=== PATIENT | female | born 1960 | race Caucasian/White ===

== ENCOUNTER 2022-10-13 13:05 | Outpatient (OUT) | payer BC, SELFPAY ==
[2022-10-14 08:59] LABS: Basophils Absolute Auto 0.1 10^3/uL (0.0-0.1); Basophils Percent Auto 0.7 % (0.2-2.0); Eosinophils Absolute Auto 0.2 10^3/uL (0.0-0.7); Eosinophils Percent Auto 1.9 % (0.9-7.0); Hematocrit 38.4 % (36.0-48.0); Hemoglobin 12.6 g/dL (12.0-16.0); Immature Granulocytes Abs Auto 0.02 10^3/uL (0.00-0.03); Immature Granulocytes Pct Auto 0.2 % (0.0-0.5); Lymphocytes Absolute Auto 2.3 10^3/uL (1.2-3.8); Lymphocytes Percent Auto 28.1 % (20.5-60.0); Mean Corpuscular HGB Conc 32.8 g/dL (29.9-35.2); Mean Corpuscular Hemoglobin 28.4 pg (26.7-34.0); Mean Corpuscular Volume 86.7 fL (81.0-99.0); Mean Platelet Volume 8.9 fL (9.5-13.5); Monocytes Absolute Auto 0.7 10^3/uL (0.3-0.8); Monocytes Percent Auto 8.6 % (1.7-12.0); Neutrophils Percent Auto 60.5 % (43.0-75.0); Platelet Count 300 10^3/uL (150-450); Red Blood Count 4.43 10^6/uL (4.20-5.40); Red Cell Distribution Width 13.2 % (11.0-15.0); White Blood Count 8.2 10^3/uL (4.0-11.0)
[2022-10-14 09:11] LABS: Alanine Aminotransferase 30 U/L (14-59); Albumin Level 3.9 g/dL (3.4-5.0); Alkaline Phosphatase 90 U/L (46-116); Anion Gap 10.7; Aspartate Amino Transferase 18 U/L (15-37); BUN Creatinine Ratio 15.3; Bilirubin Total 0.7 mg/dL (0.2-1.0); Calcium 9.6 mg/dL (8.5-10.1); Carbon Dioxide 29.5 mmol/L (21.0-32.0); Chloride 100 mmol/L (98-107); Estimated GFR (African America >60 (>=60); Estimated GFR (Non-African Ame >60 (>=60); Glucose 104 mg/dL (74-106); Potassium 4.2 mmol/L (3.5-5.1); Sodium 136 mmol/L (136-145); Total Protein 7.9 g/dL (6.4-8.2)
[2022-10-14 09:20] LABS: Chol HDL Ratio 2.8; Cholesterol 193 mg/dL (<=200); HDL Cholesterol 70 mg/dL (40-60); Thyroid Stimulating Hormone 1.444 uIU/mL (0.358-3.740); Triglycerides 173 mg/dL (<=150); VLDL CHOLESTEROL 34.6 mg/dL
== END 2022-10-13 13:06 | disposition home or self-care (01) ==
LOC: MAMMO 13:21
PROVIDERS: PCP Nurse Practitioner; Visit Provider Nurse Practitioner
DX: Z00.00 Encounter for general adult medical examination without abnormal findings (principal); I10 Essential (primary) hypertension; E78.5 Hyperlipidemia, unspecified; D64.9 Anemia, unspecified
CPT/HCPCS: 36415; 80053; 80061; 84443; 85025

== ENCOUNTER 2022-10-14 07:55 | Outpatient (OUT) | payer BC, SELFPAY ==
--- NOTE | 2022-10-14 07:59 | MM_ITS ---
Patient: EMERITA TSE Exam Date: 10/14/2022 : 1960 Gender:F Ordering : MRS. PARISA CopelandEde MYRA . Admission #: [id number] Family : Order #: [id number] CLICK HERE TO VIEW EXAM RADIOLOGY REPORT PROCEDURE: MM TOMOSYNTHESIS SCREENING BI COMPARISON: MG MAMM SCREEN ZULMA W CAD, 06/29/2020. MG MAMM SCREEN 3D ZULMA CAD, 07/05/2021. INDICATIONS: Screening Calculator Name NCI Breast Cancer Risk Assessment Tool 5 Year Breast Cancer Risk 2.00% Lifetime Breast Cancer Risk 10.00% Personal Breast Cancer No Personal Ovarian Cancer No Treatments None Family Cancers None LOCATION: [facility] BREAST COMPOSITION: Extremely dense, which lowers the sensitivity of mammography. FINDINGS: DIAGNOSTIC CATEGORY 2--BENIGN FINDING. NO CHANGE FROM COMPARISON. Scattered benign-appearing nodules are present. Scattered benign-appearing calcifications are present. Scattered benign-appearing lymph nodes are present. RIGHT BREAST: No significant suspicious finding. LEFT BREAST: No significant suspicious finding. RECOMMENDATIONS: ROUTINE MAMMOGRAM AND CLINICAL EVALUATION IN 12 MONTHS. PLEASE NOTE: A NORMAL MAMMOGRAM DOES NOT EXCLUDE THE POSSIBILITY OF BREAST CANCER. A CLINICALLY SUSPICIOUS PALPABLE LUMP SHOULD BE BIOPSIED. Dictated by: Mele Zhang MD on 10/14/2022 at 09:25 Approved by: Mele Zhang MD on 10/14/2022 at 09:28
== END 2022-10-14 07:56 | disposition home or self-care (01) ==
LOC: MAMMO 07:55
PROVIDERS: PCP Nurse Practitioner; Visit Provider Nurse Practitioner
DX: Z12.31 Encounter for screening mammogram for malignant neoplasm of breast (principal); I10 Essential (primary) hypertension; E78.5 Hyperlipidemia, unspecified; Z00.00 Encounter for general adult medical examination without abnormal findings
CPT/HCPCS: 77063; 77067

== ENCOUNTER 2023-03-02 15:00 | Outpatient (OUT) | payer BC, SELFPAY ==
[2023-03-02] MEDS: COVID VAC 23-24(12UP)MODERNA/PF 50 MCG/0.5 ML VIAL IM (16:00)
== END 2023-03-02 15:01 | disposition home or self-care (01) ==
LOC: VACCLI 03-21 16:06
PROVIDERS: PCP Nurse Practitioner; Visit Provider Nurse Practitioner
DX: Z23 Encounter for immunization (principal)
CPT/HCPCS: 90480; 91322

== ENCOUNTER 2024-02-15 09:41 | Outpatient (OUT) | payer OTHER, SELFPAY ==
--- NOTE | 2024-02-15 09:49 | MM_ITS ---
Patient Name: EMERITA TSE MR#: [id number] : 1960 Exam Date: 02/15/2024 Ordering Doctor: PARISA RENTERIA . RADIOLOGY REPORT PROCEDURE: MM TOMOSYNTHESIS SCREENING BI COMPARISON: MG MAMM SCREEN 3D ZULMA CAD, 07/05/2021. MM TOMOSYNTHESIS SCREENING BI, 10/14/2022. INDICATIONS: Screening Calculator Name NCI Breast Cancer Risk Assessment Tool 5 Year Breast Cancer Risk 2.00% Lifetime Breast Cancer Risk 9.70% Personal Breast Cancer No Personal Ovarian Cancer No Treatments None Family Cancers None LOCATION: [facility] BREAST COMPOSITION: The breasts are extremely dense, which lowers the sensitivity of mammography. FINDINGS: DIAGNOSTIC CATEGORY 2--BENIGN FINDING. NO CHANGE FROM COMPARISON. Scattered benign-appearing calcifications are present. Scattered benign-appearing lymph nodes are present. RIGHT BREAST: No significant suspicious finding. LEFT BREAST: No significant suspicious finding. RECOMMENDATIONS: ROUTINE MAMMOGRAM AND CLINICAL EVALUATION IN 12 MONTHS. PLEASE NOTE: A NORMAL MAMMOGRAM DOES NOT EXCLUDE THE POSSIBILITY OF BREAST CANCER. A CLINICALLY SUSPICIOUS PALPABLE LUMP SHOULD BE BIOPSIED. Dictated by: Mele Zhang MD on 02/15/2024 at 10:39 Approved by: Mele Zhang MD on 02/15/2024 at 10:44
--- OUTSIDE RECORDS SUMMARY | 2024-02-15 09:57 | XMS_ITS | CCD ---
Author Organization [facility] Care Team Providers Care Satellite Dish Technician Name Role Phone ERICKA, DR GALO Primary Care Unavailable HOY, DR VILLAGRAN Admitting Unavailable HOY, DR VILLAGRAN Attending Unavailable HOY, DR VILLAGRAN Consulting Unavailable J LUIS, VALENTINA Admitting Unavailable J LUIS, VALENTINA Attending Unavailable J LUIS, VALENTINA Consulting Unavailable LOUISE, DR CIRILO Dueñas Primary Care Unavailable GIL, DR CIRILO Dueñas Attending Unavailable GIL, DR CIRILO Dueñas Consulting Unavailable KARMONIQUE, DR GALO Primary Care Unavailable LOUISE, DR CIRILO Dueñas Admitting Unavailable [place], DR CONRADO Vasquez Consulting Unavailable LOUISE, DR CIRILO Dueñas Attending Unavailable GIL, DR CIRILO Dueñas Consulting Unavailable KARASIYong, DR GALO Primary Care Unavailable GIL, DR CIRILO Dueñas Admitting Unavailable J LUIS, VALENTINA Admitting Unavailable J LUIS, VALENTINA Attending Unavailable J LUIS, VALENTINA Consulting Unavailable GIL, DR CIRILO Dueñas Primary Care Unavailable Marisa Delacruz Attending Unavailable Problems Active Problems Problem Classification Problem Date Documented Da te Episodic/Chronic Unclassified (3 sources) CONTACT W/AND (SUSP) EXPOS COVID-19; Translations: [CONTACT W/AND (SUSP) EXPOS COVID-19] Onset: 04-29-2021 Past or Other Problems Problem Classification Problem Date Documented Da te Episodic/Chronic Other screening for suspected conditions (not mental disorders or infectious disease) (4 sources) Encounter for screening mammogram for malignant neoplasm of breast; Translations: [ENC SCR MAMMO MALIG NEOPLASM BREAST] Onset: 07-05-2021 Episodic Unclassified (1 source) CONTACT W/AND (SUSP) EXPOS COVID-19; Translations: [CONTACT W/AND (SUSP) EXPOS COVID-19] Onset: 04-23-2021 Results Test Name Value Interpretation Reference Range Facility Ambulatory Visit Summaryon 1 Ambulatory Visit Summary Ambulatory Visit Summary EMERITA TSE :1960 Visit Date:02/06/2024 Ambulatory Visit Instructions Your Diagnosis Wellness examination Breast cancer screening by mammogram Former smoker BMI 30.0-30.9,adult Exogenous obesity Your Care Team Attending Physician - Marisa Silverio Primary Care Physician - Marisa Silverio This Is Your Medications List atorvastatin (atorvastatin 10 mg Tab) fluoxetine (FLUoxetine 20 mg Cap) melatonin (melatonin 10 mg oral tablet) propranolol (propranolol 20 mg Tab) Procedures Performed Laparoscopic hysterectomy (10/22/2016), Tonsillectomy. Discharge Vitals Temperature (Temporal Artery) 36.5 ?C Heart Rate (Peripheral) 88 Respiratory Rate 18 Blood Pressure 128/84 Height 163.0 cm Height 64 in Weight 81.85 kg Weight 180.07 lb BMI 30.81 Medications What How Much When Instructions Unchanged atorvastatin (atorvastatin 10 mg Tab) See instructions TAKE 1 TABLET BY MOUTH DAILY Unchanged fluoxetine (FLUoxetine 20 mg Cap) 1 Capsules By Mouth Every day Unchanged melatonin (melatonin 10 mg oral tablet) 1 Tablets By Mouth Once a day (at bedtime) Unchanged propranolol (propranolol 20 mg Tab) See instructions TAKE 1 TABLET BY MOUTH DAILY Medications and Immunizations Administered Given influenza, unspecified formulation, influenza, unspecified formulation, SARS-CoV-2 (COVID-19) mRNA-1273 vaccine, SARS-CoV-2 (COVID-19) mRNA-1273 vaccine, Allergies No Known Allergies Problems Ongoing - Any problem that you are currently receiving treatment for. Breast cancer screening by mammogram Hyperlipemia Hypertension Left bundle branch block Wellness examination Patient Survey You may receive a survey via text or e-mail asking about your office visit. Please share your experience with us by completing your survey. We appreciate your feedback and thank you for choosing us for your care. Normal Cantu [facility] Family Medicine Office/Clini c Noteon 02-06-2024 Family Medicine Office/Clinic Note Family Medicine Office/Clinic Note HPI Staff Pt presents today for annual wellness exam Health Maintenance: Colonoscopy: 5 years ago. found polops ([facility]) Dexa: before COVID she thinks Mammo: 10/14/22 wants at [facility] Pap: hysterectomy in 2017 had her last pap in 2019 Last Labs: 10/14/22 wants at [facility] Shingles vaccine- she wants info on this. Had one 8-9 years ago she wants to know if she needs any one History of Present Illness pt presents today for wellness visit. needs labs and screenings Review of Systems PHQ Score Initial Depression Screen Score: 0 SCORE Physical Exam Vitals & Measurements T: 36.5 ?C(Temporal Artery) HR: 88(Peripheral) RR: 18 BP: 128/84 SpO2: 97% HT: 64 in HT: 163.0 cm WT: 81.85 kg WT: 180.07 lb BMI: 30.81 General: alert, no acute distress ENMT: oral mucosa moist, no pharyngeal erythema or exudate Cardiovascular: regular rate and rhythm, normal peripheral perfusion Respiratory: Lungs CTA, respirations non labored Extremities: no deformity, no trauma Neurological: oriented x 4, LOC appropriate for age, CN II-XII intact, motor strength equal & normal bilaterally, speech normal Assessment/Plan 1. Wellness examination (Z00.00: Encounter for general adult medical examination without abnormal findings) pt presents today for wellness visit. is due for labs, mammogram, and colonoscopy. Will send all labs to [facility] per pt request. physical exam WNL. all questions answered. RTC as needed Ordered: Est Preventative 40 to 64 years [address] 2. Breast cancer screening by mammogram (Z12.31: Encounter for screening mammogram for malignant neoplasm of breast) order for mammogram given for [facility] Ordered: Est Preventative 40 to 64 years [address] 3. Colon cancer screening (Z12.11: Encounter for screening for malignant neoplasm of colon) pt had colonoscopy 5 years ago had polyps 10 years ago with first scope Ordered: Est Preventative 40 to 64 years [address] [facility] Internal Ambulatory Referral 4. Former smoker (Z87.891: Personal history of nicotine dependence) continue not smoking Ordered: Est Preventative 40 to 64 years [address] [facility] Internal Ambulatory Referral 5. BMI 30.0-30.9,adult (Z68.30: Body mass index [BMI] 30.0-30.9, adult) BMI education given Ordered: Est Preventative 40 to 64 years [address] [facility] Internal Ambulatory Referral 6. Exogenous obesity (E66.09: Other obesity due to excess calories) see above Ordered: Est Preventative 40 to 64 years [address] Follow-up No qualifying data available Problem List/Past Medical History Ongoing Breast cancer screening by mammogram Colon cancer screening Hyperlipemia Hypertension Left bundle branch block Wellness examination Historical No qualifying data Procedure/Surgical History Laparoscopic hysterectomy (10/22/2016), Tonsillectomy. Medications atorvastatin 10 mg Tab, See Instructions, 4 refills FLUoxetine 20 mg Cap, 20 mg= 1 cap(s), Oral, Daily, 4 refills melatonin 10 mg oral tablet, 10 mg= 1 tab(s), Oral, Once a day (at bedtime) propranolol 20 mg Tab, See Instructions, 4 refills Allergies No Known Allergies Social History Alcohol Current. Beer, Wine. 3-5 times per week., 02/05/2024 Substance Abuse Never., 02/05/2024 Tobacco Former smoker, quit more than 30 days ago, quit 31 years ago Tobacco Use:., 02/06/2024 Family History Patient was adopted Immunizations Vaccine Date Status SARS-CoV-2 (COVID-19) mRNA-1273 vaccine 2022 Given SARS-CoV-2 (COVID-19) mRNA-1273 vaccine 2022 Given SARS-CoV-2 (COVID-19) mRNA-1273 vaccine 2022 Recorded SARS-CoV-2 (COVID-19) mRNA-1273 vaccine 02/05/2021 Recorded SARS-CoV-2 (COVID-19) mRNA-1273 vaccine 05/20/2020 Recorded SARS-CoV-2 (COVID-19) mRNA-1273 vaccine 04/21/2020 Recorded influenza, unspecified formulation 01/16/2020 Given influenza, unspecified formulation 01/16/2020 Given influenza virus vaccine, inactivated 01/16/2020 Recorded influenza virus vaccine, inactivated 01/27/2019 Recorded influenza virus vaccine, inactivated 01/28/2018 Recorded influenza virus vaccine, inactivated 01/28/2017 Recorded influenza virus vaccine, inactivated 02/23/2016 Recorded zoster vaccine live 03/31/2015 Recorded influenza virus vaccine, inactivated 02/16/2015 Recorded influenza virus vaccine, inactivated 03/25/2014 Recorded influenza virus vaccine, inactivated 05/02/2013 Recorded Normal Cantu [facility] Comment on above: Result Comment: Elec tronically Signed By: Marisa Silverio\.br\Date and Time Signed: 02/06/24 12:20 EDT CBC AUTO DIFFon 12-08-2021 BASO # 0.0 103/ul Normal 0.0-0.1 [facility] Comment on above: Performed By: #### C BC #### [facility] [address] [address] [address] Nisreen Cody Basophils/100 WBC (Bld) 0.5 % Normal 0.2-2.0 [facility] Comment on above: Performed By: #### C BC #### [facility] [address] [address] [address] Nisreen Cody EO # 0.1 103/ul Normal 0.0-0.7 [facility] Comment on above: Performed By: #### C BC #### [facility] [address] [address] [address] Nisreen Cody Eosinophils/100 WBC (Bld) 1.8 % Normal 0.9-7.0 [facility] Comment on above: Performed By: #### C BC #### [facility] [address] [place] [address] Dr. Nisreen Cody Erythrocyte distribution width (RBC) [Ratio] 13.0 % Normal 11.0-15.0 [facility] Comment on above: Performed By: #### C BC #### [facility] [address] [place] [address] Dr. Nisreen Cody Hematocrit (Bld) [Volume fraction] 35.8 % Critically low 36.0-48.0 [facility] Comment on above: Performed By: #### C BC #### [facility] [address] [place] [address] Dr. Nisreen Cody Hemoglobin (Bld) [Mass/Vol] 11.7 g/dL Critically low 12.0-16.0 [facility] Comment on above: Performed By: #### C BC #### [facility] [address] [place] [address] Dr. Nisreen Cody IG # 0.01 10e3/ul Normal 0.00-0.03 [facility] Comment on above: Performed By: #### C BC #### [facility] [address] [address] [address] Nisreen Cody IG % 0.2 % Normal 0.0-0.5 [facility] Comment on above: Performed By: #### C BC #### [facility] [address] [place] [address] Dr. Nisreen Cody LYMPH # 1.9 103/ul Normal 1.2-3.8 [facility] Comment on above: Performed By: #### C BC #### [facility] [address] [place] [address] Dr. Nisreen Cody Lymphocytes/100 WBC (Bld) 30.7 % Normal 20.5-60.0 [facility] Comment on above: Performed By: #### C BC #### [facility] [address] [place] [address] Dr. Nisreen Cody MANUAL DIFF REQ NO Normal [facility] Comment on above: Performed By: #### C BC #### [facility] [address] [place] [address] Dr. Nisreen Cody MCH (RBC) [Entitic mass] 28.7 pg Normal 26.7-34.0 [facility] Comment on above: Performed By: #### C BC #### [facility] [address] [place] [address] Dr. Nisreen Cody MCHC (RBC) [Mass/Vol] 32.7 g/dL Normal 29.9-35.2 [facility] Comment on above: Performed By: #### C BC #### [facility] [address] [place] [address] Dr. Nisreen Cody MCV (RBC) [Entitic vol] 87.7 fL Normal 81.0-99.0 [facility] Comment on above: Performed By: #### C BC #### [facility] [address] [place] [address] Dr. Nisreen Cody MONO # 0.5 103/ul Normal 0.3-0.8 [facility] Comment on above: Performed By: #### C BC #### [facility] [address] [place] [address] Dr. Nisreen Cody Monocytes/100 WBC (Bld) 8.3 % Normal 1.7-12.0 [facility] Comment on above: Performed By: #### C BC #### [facility] [address] [address] [address] Nisreen Cody NEUT # 3.7 103/ul Normal 1.4-6.5 [facility] Comment on above: Performed By: #### C BC #### [facility] [address] [address] [address] Nisreen Cody Neutrophils/100 WBC (Bld) 58.5 % Normal 43.0-75.0 [facility] Comment on above: Performed By: #### C BC #### [facility] [address] [address] [address] Nisreen Cody Platelet mean volume (Bld) [Entitic vol] 8.8 fL Critically low 9.5-13.5 [facility] Comment on above: Performed By: #### C BC #### [facility] [address] [place] [address] Dr. Nisreen Cody PLT 264 103/ul Normal 150-450 [facility] Comment on above: Performed By: #### C BC #### [facility] [address] [address] [address] Nisreen Cody RBC 4.08 106/ul Critically low 4.20-5.40 [facility] Comment on above: Performed By: #### C BC #### [facility] [address] [place] [address] Dr. Nisreen Cody WBC 6.3 103/ul Normal 4.0-11.0 [facility] Comment on above: Performed By: #### C BC #### [facility] [address] [place] [address] Dr. Nisreen Cody GLYCOHEMOGLOBIN A1Con 2021 ADA RECOMMENDATION SEE BELOW Normal [facility] Comment on above: Result Comment: ADA RECOMMENDED LIMIT 4.0 - 6.0 ADA THERAPEUTIC TARGET < 7.0 ACTION SUGGESTED > 7.0 Performed By: #### A 1C #### [facility] [address] [place] [address] Dr. Nisreen Cody Glucose [Mass/Vol] 111 mg/dL Normal [facility] Comment on above: Performed By: #### A 1C #### [facility] [address] [place] [address] Dr. Nisreen Cody HbA1c (Bld) [Mass fraction] 5.5 % Normal 4.5-6.2 [facility] Comment on above: Performed By: #### A 1C #### [facility] [address] [place] [address] Dr. Nisreen Cody LIPID PROFILEon 12-08-2021 CHOL-HDL RATIO NORM SEE BELOW Normal [facility] Comment on above: Result Comment: 3.3 - 4.4 LOW RISK 4.4 - 7.1 AVERAGE RISK 7.1 - 11.0 MODERATE RISK >11.0 HIGH RISK Performed By: #### C MP, LIPID #### [facility] [address] [place] [address] Dr. Nisreen Cody Cholesterol [Mass/Vol] 167 mg/dL Normal <=200 [facility] Comment on above: Performed By: #### C MP, LIPID #### [facility] [address] [place] [address] Dr. Nisreen Cody Cholesterol in HDL [Mass/Vol] 60 mg/dL Normal 40-60 [facility] Comment on above: Performed By: #### C MP, LIPID #### [facility] [address] [place] [address] Dr. Nisreen Cody Cholesterol in LDL [Mass/Vol] 88.6 mg/dL Normal [facility] Comment on above: Performed By: #### C MP, LIPID #### [facility] [address] [place] [address] Dr. Nisreen Cody Cholesterol.total/Cho lesterol in HDL [Mass ratio] 2.8 {ratio} Normal [facility] Comment on above: Performed By: #### C MP, LIPID #### [facility] [address] [place] [address] Dr. Nisreen Cody HDL NORMAL > or = 60 mg/dl - LO W CARDIOVASCULAR RISK <40 mg/dl - HIGH CARDIOVASCULAR RISK Normal [facility] Comment on above: Performed By: #### C MP, LIPID #### [facility] [address] [place] [address] Dr. Nisreen Cody LDL CALC NORMAL SEE BELOW Normal [facility] Comment on above: Result Comment: <100 mg/dl OPTIMAL 100 - 129 mg/dl NEAR OR ABOVE OPTIMAL 130 - 159 mg/dl BORDERLINE HIGH 160 - 189 mg/dl HIGH >190 mg/dl VERY HIGH Performed By: #### C MP, LIPID #### [facility] [address] [address] [address] Nisreen Cody Triglyceride [Mass/Vol] 92 mg/dL Normal <=150 [facility] Comment on above: Performed By: #### C MP, LIPID #### [facility] [address] [address] [address] Nisreen Cody VLDL CALC 18.4 mg/dL Normal [facility] Comment on above: Performed By: #### C MP, LIPID #### [facility] [address] [address] [address] Nisreen Cody PROF 14(COMP METB)on 022 Albumin [Mass/Vol] 3.8 g/dL Normal 3.4-5.0 [facility] Comment on above: Performed By: #### C MP, LIPID #### [facility] [address] [address] [address] Nisreen Cody Albumin/Globulin [Mass ratio] 1.2 {ratio} Normal [facility] Comment on above: Performed By: #### C MP, LIPID #### [facility] [address] [address] [address] Nisreen Cody ALP [Catalytic activity/Vol] 116 U/L Normal 46-116 [facility] Comment on above: Performed By: #### C MP, LIPID #### [facility] [address] [address] [address] Nisreen Cody ALT [Catalytic activity/Vol] 23 U/L Normal 14-59 [facility] Comment on above: Performed By: #### C MP, LIPID #### [facility] [address] [address] [address] Nisreen Cody Anion gap [Moles/Vol] 10.7 mmol/L Normal [facility] Comment on above: Performed By: #### C MP, LIPID #### [facility] [address] [address] [address] Nisreen Cody AST [Catalytic activity/Vol] 15 U/L Normal 15-37 [facility] Comment on above: Performed By: #### C MP, LIPID #### [facility] [address] [address] [address] Nisreen Cody Bilirubin [Mass/Vol] 0.4 mg/dL Normal 0.2-1.0 [facility] Comment on above: Performed By: #### C MP, LIPID #### [facility] [address] [address] [address] Nisreen Cody Calcium [Mass/Vol] 8.6 mg/dL Normal 8.5-10.1 [facility] Comment on above: Performed By: #### C MP, LIPID #### [facility] [address] [address] [address] Nisreen Cody Chloride [Moles/Vol] 103 mmol/L Normal 98-107 [facility] Comment on above: Performed By: #### C MP, LIPID #### [facility] [address] [address] [address] Nisreen Cody CO2 [Moles/Vol] 28.5 mmol/L Normal 21.0-32.0 [facility] Comment on above: Performed By: #### C MP, LIPID #### [facility] [address] [address] [address] Nisreen Cody Creatinine [Mass/Vol] 0.83 mg/dL Normal 0.55-1.02 [facility] Comment on above: Performed By: #### C MP, LIPID #### [facility] [address] [address] [address] Nisreen Cody EGFR-AF CONGOLESE >60 Normal >=60 [facility] Comment on above: Performed By: #### C MP, LIPID #### [facility] [address] [address] [address] Nisreen Cody EGFR-NON AF CONGOLESE >60 Normal >=60 [facility] Comment on above: Performed By: #### C MP, LIPID #### [facility] [address] [address] [address] Nisreen Cody Globulin (S) [Mass/Vol] 3.2 g/dL Normal [facility] Comment on above: Performed By: #### C MP, LIPID #### [facility] [address] [address] [address] Nisreen Cody Glucose [Mass/Vol] 99 mg/dL Normal 74-[address] [facility] Comment on above: Performed By: #### C MP, LIPID #### [facility] [address] [address] [address] Nisreen Cody Potassium [Moles/Vol] 4.2 mmol/L Normal 3.5-5.1 [facility] Comment on above: Performed By: #### C MP, LIPID #### [facility] [address] [place] [address] Dr. Nisreen Cody Protein [Mass/Vol] 7.0 g/dL Normal 6.4-8.[address] [facility] Comment on above: Performed By: #### C MP, LIPID #### [facility] [address] [place] [address] Dr. Nisreen Cody Sodium [Moles/Vol] 138 mmol/L Normal 136-145 [facility] Comment on above: Performed By: #### C MP, LIPID #### [facility] [address] [place] [address] Dr. Nisreen Cody Urea nitrogen [Mass/Vol] 13.0 mg/dL Normal 7.0-18.0 [facility] Comment on above: Performed By: #### C MP, LIPID #### [facility] [address] [place] [address] Dr. Nisreen Cody Urea nitrogen/Creatinine [Mass ratio] 15.7 mg/mg Normal [facility] Comment on above: Performed By: #### C MP, LIPID #### [facility] [address] [place] [address] Dr. Nisreen Cody MG MAMM SCREEN 3D ZULMA CADon 07-05-2021 MG MAMM SCREEN 3D ZULMA CAD Patient: EMERITA TSEEde Exam Date: 07/05/2021 : 1960 Gender:F Ordering : DR CIRILO GIL . Admission #: [id number] Family : Order #: [id number] CLICK HERE TO VIEW EXAM RADIOLOGY REPORT PROCEDURE: MAMMOGRAM SCREENING 3D BILATERAL CAD COMPARISON: MG MAMM SCREEN ZULMA W CAD, 02/22/2019. MG MAMM SCREEN ZULMA W CAD, 06/29/2020. INDICATIONS: Screening mammography Calculator Name NCI Breast Cancer Risk Assessment Tool 5 Year Breast Cancer Risk 1.90% Lifetime Breast Cancer Risk 10.20% Personal Breast Cancer No Personal Ovarian Cancer No Treatments None Family Cancers None LOCATION: [facility] BREAST COMPOSITION: Extremely dense, which lowers the sensitivity of mammography. FINDINGS: DIAGNOSTIC CATEGORY 2--BENIGN FINDING. NO CHANGE FROM COMPARISON. Scattered benign-appearing calcifications are present. Scattered benign-appearing lymph nodes are present. RIGHT BREAST: No significant suspicious finding. LEFT BREAST: No significant suspicious finding. RECOMMENDATIONS: ROUTINE MAMMOGRAM AND CLINICAL EVALUATION IN 12 MONTHS. PLEASE NOTE: A NORMAL MAMMOGRAM DOES NOT EXCLUDE THE POSSIBILITY OF BREAST CANCER. A CLINICALLY SUSPICIOUS PALPABLE LUMP SHOULD BE BIOPSIED. Dictated by: Conrado Zhang MD on 07/05/2021 at 08:06 Approved by: Conrado Zhang MD on 07/05/2021 at 08:08 Normal [facility]on SARS-CoV-2 (COVID-19) RNA FABIENNE+probe Ql (Unsp spec) Not detected Normal NOT DETECTED [facility] Comment on above: Result Comment: When diagnostic testing is negative, the possibility of a false negative should be considered in the context of a patient's recent exposures and the presence of clinical signs and symptoms consistent with SARS-CoV-2. This test is not yet approved or cleared by the [place] FDA. When there are no FDA-approved or cleared tests available, and other criteria are met, FDA can make tests available under an emergency access mechanism called an Emergency Use Authorization (EUA). The EUA for this test is supported by the [place] of Health and Human Service's declaration that circumstances exist to justify the emergency use of in vitro diagnostics for the detection and/or diagnosis of the virus that causes COVID-19. This EUA will remain in effect for the duration of the COVID-19 declaration justifying emergency of IVDs, unless it is terminated or revoked by the FDA (after which the test may no longer be used). Performed By: #### C VDTB #### [facility] [address] [place], [place] [id number] Dr. Nisreen Cody Covid-19 PCR ([facility])on 02-17 SARS-CoV-2 (COVID-19) RNA FABIENNE+probe Ql (Unsp spec) Not detected Normal NOT DETECTED [facility] Comment on above: Result Comment: When diagnostic testing is negative, the possibility of a false negative should be considered in the context of a patient's recent exposures and the presence of clinical signs and symptoms consistent with SARS-CoV-2. This test is not yet approved or cleared by the [place] FDA. When there are no FDA-approved or cleared tests available, and other criteria are met, FDA can make tests available under an emergency access mechanism called an Emergency Use Authorization (EUA). The EUA for this test is supported by the [place] of Health and Human Service's declaration that circumstances exist to justify the emergency use of in vitro diagnostics for the detection and/or diagnosis of the virus that causes COVID-19. This EUA will remain in effect for the duration of the COVID-19 declaration justifying emergency of IVDs, unless it is terminated or revoked by the FDA (after which the test may no longer be used). Performed By: #### C V[facility] #### [facility] [address], [place] [address] Dr. Nisreen Cody [facility] CARDIAC STRESS/REST INJE CTIONon 06-04-2019 [facility] CARDIAC STRESS/REST INJECTION Patient Name: EMERITA TSE STUDY: MYOCARDIAL PERFUSION STRESS TEST WITH LEXISCAN Performing facility: [facility], [address] [place] [address], [address], [place] [address] [facility] Provider: Randolph Ervin DO, [facility] PCP: Dr. Ilsa GIL Supervising provider: Laurent Machado DO, [facility] INDICATION: CP HISTORY: Gender: F; Age: 59 y/o ; Height: 162.56 cm; Weight: 76.6364855 kg. Chest Pain; High Cholesterol; Abnormal EKG-LBBB; Essentiall Tremor Quit smoking years ago. COMPARISON: No comparison. ACCESSION NUMBER(S): [id number]; [id number]; [id number] ORDERING CLINICIAN: ADRIAN ERVIN TECHNIQUE: ONE DAY protocol. Stress injection: Date:06/04/2019, 35.2 mCi of Myoview IV 20 seconds after rapid injection of Lexiscan. Rest injection: Date: 06/04/2019, 10.4 mCi of Myoview IV at rest. The patient had a rapid injection of 0.4 mg of Lexiscan IV over 10 seconds. Imaging was performed by gated tomographic technique. Reason for Lexiscan: LBBB STRESS TEST DATA: Resting heart rate was 66 BPM. Resting blood pressure was 152/94 mmHg. Peak blood pressure was 148/84 mmHg. Peak heart rate was 90 BPM. TEST TERMINATED DUE TO: Protocol completed FINDINGS: STRESS TEST RESULTS: Resting electrocardiogram revealed normal sinus rhythm with left bundle branch block. There were no significant ischemic ECG changes or dysrhythmias. The patient did not have chest pains/symptoms during procedure. There was a normal recovery phase. IMAGING RESULTS: Image quality was good. Rest and stress tomographic images were reviewed and revealed normal perfusion without evidence of ischemia, myocardial infarction, or left ventricular dilatation with stress. Overall left ventricular systolic function appeared to be normal without regional wall motion abnormalities. Ejection fraction was 68%. TID is 0.9 and is normal. There were evidence of breast attenuation artifact. IMPRESSION: Normal Lexiscan Myoview cardiac perfusion stress test. No evidence of ischemia or myocardial infarction by perfusion imaging. Normal left ventricular systolic function, ejection fraction 68%. No previous study available for comparison. Electronically signed by: CRISTIAN WHITNEY MD [facility] Encounters Encounter Date Encounter Type Care Provider Facility Start: 02-09-2024 ambulatory Marisa Nubia Facility:[facility] Start: 02-06-2024 End: 02-06-2024 ambulatory Marisa Delacruz Facility:[facility] Start: 02-10-2022 End: 02-11-[address] IRAJ BARNETT Facility: Start: 12-09-2021 Encounter for genera l adult medical examination without abnormal findings DR CIRILO GIL [facility] Start: 12-08-2021 End: 12-09-[address] CIRILO GIL Facility:[facility] Start: 12-08-2021 End: 12-09-2021 Encounter for general adult medical examination without abnormal findings DR CIRILO GIL Facility:[facility] Start: 07-05-2021 End: 07-06-[address] CIRILO GIL Facility:[facility] Start: 04-23-2021 End: 04-23-2021 ambulatory VALENTINA DIETZ Facility:[facility] Start: 03-16-2021 End: 03-16-2021 ambulatory VALENTINA J LUIS Facility:[facility] Payers Date Payer Category Payer Unknown [id number] 1960 Unknown [id number] 2.16.84 [id number] 1960 Unknown [id number] 2.16.84 [id number] 1960 Unknown [id number] 2.16.84 [id number] 1960 Unknown [id number] 2.16.84 [id number] 1960 Unknown [id number] 2.16.8 [id number] 1957 Self-pay Unknown [id number] 2.16.84 [id number] Summary Purpose Family History No Family History Records FoundNo Family History Records FoundNo Family History Records Found Advance Directives No Advanced Directives Records FoundNo Advanced Directives Records FoundNo Advanced Directives Records Found Additional Source Comments INFORMATION SOURCE (unrecogn ized section and content) DATE CREATED AUTHOR 06/06/2019 [facility] DATE CREATED AUTHOR AUTHOR'S ORGANIZ ATION 02/11/2022 [facility] DATE CREATED AUTHOR AUTHOR'S ORGANIZ ATION 02/10/2024 [facility] [place] FOR RECORDS PERTAINING TO PATIENTS WHO ARE OR HAVE BEEN ENROLLED IN A CHEMICAL DEPENDENCY/SUBSTANCEABUSE PROGRAM, SOME INFORMATION MAY BE OMITTED. This clinical summary was aggregated from multiple sources. Caution should be exercised in using it in the provision of clinical care. This summary normalizes information from multiple sources, and as a consequence, information in this document may materially change the coding, format and clinical context of patient data. In addition, data may be omitted in some cases. CLINICAL DECISIONS SHOULD BE BASED ON THE PRIMARY CLINICAL RECORDS. [facility] [employer] [facility]. provides no warranty or guarantee of the accuracy or completeness of information in this document.
[2024-02-15 10:20] LABS: Basophils Absolute Auto 0.1 10^3/uL (0.0-0.1); Basophils Percent Auto 0.6 % (0.2-2.0); Eosinophils Absolute Auto 0.2 10^3/uL (0.0-0.7); Eosinophils Percent Auto 1.8 % (0.9-7.0); Hematocrit 38.6 % (36.0-48.0); Hemoglobin 13.2 g/dL (12.0-16.0); Immature Granulocytes Abs Auto 0.02 10^3/uL (0.00-0.03); Immature Granulocytes Pct Auto 0.2 % (0.0-0.5); Lymphocytes Absolute Auto 2.2 10^3/uL (1.2-3.8); Lymphocytes Percent Auto 25.3 % (20.5-60.0); Mean Corpuscular HGB Conc 34.2 g/dL (29.9-35.2); Mean Corpuscular Hemoglobin 29.5 pg (26.7-34.0); Mean Corpuscular Volume 86.2 fL (81.0-99.0); Mean Platelet Volume 8.7 fL (9.5-13.5); Monocytes Absolute Auto 0.7 10^3/uL (0.3-0.8); Monocytes Percent Auto 7.8 % (1.7-12.0); Neutrophils Absolute Auto 5.5 10^3/uL (1.4-6.5); Neutrophils Percent Auto 64.3 % (43.0-75.0); Platelet Count 295 10^3/uL (150-450); Red Blood Count 4.48 10^6/uL (4.20-5.40); Red Cell Distribution Width 12.7 % (11.0-15.0); White Blood Count 8.5 10^3/uL (4.0-11.0)
[2024-02-15 11:26] LABS: Alanine Aminotransferase 23 U/L (14-59); Albumin Globulin Ratio 1.1; Alkaline Phosphatase 89 U/L (46-116); Anion Gap 16.1; Aspartate Amino Transferase 17 U/L (15-37); BUN Creatinine Ratio 10.9; Bilirubin Total 0.8 mg/dL (0.2-1.0); Calcium 9.6 mg/dL (8.5-10.1); Carbon Dioxide 25.8 mmol/L (21.0-32.0); Chloride 103 mmol/L (98-107); Chol HDL Ratio 2.5; Cholesterol 178 mg/dL (<=200); Estimated GFR (African America >60 (>=60 mL/min/1.73m^2); Estimated GFR (Non-African Ame 56 (>=60 mL/min/1.73m^2); Globulin 3.5 g/dL; Glucose 92 mg/dL (74-106); HDL Cholesterol 70 mg/dL (40-60); Potassium 3.9 mmol/L (3.5-5.1); Sodium 141 mmol/L (136-145); Thyroid Stimulating Hormone 1.964 uIU/mL (0.358-3.740); Total Protein 7.5 g/dL (6.4-8.2); Triglycerides 116 mg/dL (<=150); VLDL CHOLESTEROL 23.2 mg/dL
== END 2024-02-15 09:42 | disposition home or self-care (01) ==
LOC: MAMMO 09:43
PROVIDERS: PCP Nurse Practitioner; Visit Provider Nurse Practitioner
DX: Z00.00 Encounter for general adult medical examination without abnormal findings (principal); Z12.31 Encounter for screening mammogram for malignant neoplasm of breast; E78.5 Hyperlipidemia, unspecified; I10 Essential (primary) hypertension
CPT/HCPCS: 36415; 77063; 77067; 80053; 80061; 84443; 85025

== ENCOUNTER 2024-04-11 09:34 | Outpatient (OUT) | payer OTHER, SELFPAY | END 2024-04-11 09:35 | disposition home or self-care (01) | LOC: PST 09:34 | PROVIDERS: PCP Nurse Practitioner; Visit Provider Surgery | DX: Z12.11 Encounter for screening for malignant neoplasm of colon (principal) ==

== ENCOUNTER 2024-04-24 07:24 | Day surgery (SDC) | payer OTHER, SELFPAY ==
--- NOTE | 2024-04-24 | OP_ITS ---
OPERATION DATE: 04/24/2024 PREOPERATIVE DIAGNOSIS: Colorectal screening. POSTOPERATIVE DIAGNOSIS: Normal colonoscopy to cecum. PROCEDURE: Colonoscopy to cecum. SURGEON: Laurent zIquierdo M.D. ANESTHESIA: Monitored anesthesia care. ESTIMATED BLOOD LOSS: Zero. INDICATIONS AND CONSENT: Patient is a 64-year-old female, presents for colorectal screening. Indications, risks, benefits, alternatives of proceeding with colonoscopy were explained extensively to the patient, including the risks of bleeding, colon perforation or anesthetic complications. All of her questions were answered. Informed consent was obtained. PROCEDURE: Patient brought to the operating room, placed in the left lateral decubitus position. Monitored anesthesia care was provided. Rectal exam was performed which showed no masses or blood. The scope was inserted into the anal canal. Under direct visualization was advanced. It was advanced to the cecum, with the aid of abdominal compression. There was noticed to be a redundant, tortuous colon. Cecal markings were clearly identified. There was noted to be a good prep. Upon withdrawal of the scope, mucosal surfaces were carefully examined. There were no mass lesions or polyps. No inflammatory changes or ulcerations. No significant diverticulosis. The scope was retroflexed in the anal canal. There was no significant hemorrhoidal disease. Scope was then withdrawn. Patient tolerated procedure well, was sent to recovery room in good condition. f/u screening colonoscopy in 10 years. CC: RONALD Espinoza
[2024-04-24 07:42] VITALS: BP 155/85; PULSE 70; TEMP 36.1; O2SAT 97; BMI 29.7
[2024-04-24] MEDS: 0.9 % SODIUM CHLORIDE 500 ML 50 ML IV (07:53)
[2024-04-24 09:31] VITALS: BP 88/58; PULSE 67; TEMP 36.3; O2SAT 96
[2024-04-24 09:46] VITALS: BP 106/62; PULSE 61; TEMP 36.2; O2SAT 97
[2024-04-24 10:01] VITALS: BP 126/79; PULSE 61; O2SAT 98
== END 2024-04-24 10:01 | disposition home or self-care (01) ==
PROVIDERS: PCP Nurse Practitioner; Visit Provider Surgery
PROC: (CPT 812; principal; 2024-04-24 08:30)
DX: Z12.11 Encounter for screening for malignant neoplasm of colon (principal); Z86.0100 Personal history of colon polyps, unspecified; E78.5 Hyperlipidemia, unspecified; Z90.710 Acquired absence of both cervix and uterus; Z87.891 Personal history of nicotine dependence; G47.33 Obstructive sleep apnea (adult) (pediatric)
CPT/HCPCS: 00812; 45378; J2704